=== PATIENT | male | born 1960 | race African-American/Black ===

== ENCOUNTER 2024-06-06 05:43 | Day surgery (SDC) | payer MEDICAID ==
[~2024-06-06] VITALS: Ht 170.2 cm; Wt 88.9 kg
[~2024-06-06 05:43] MED LIST: BUPR1PAT10 TD; CHOL200059 PO; DOCU-405 PO; DULO30CA2 PO; DULO60CA64 PO; DUPI300S SQ; GABA800T97 PO; HYDR12.54 PO; LOSA-415 PO; TIZA4CAP PO
[2024-06-06] MEDS ORDERED: BUPIVACAINE HCL/PF 0.5% (5MG/ML) 10ML ONE (07:06)
[2024-06-06] MEDS ORDERED: SKIN ADHESIVE 0.7 GM EA TOP ONE (07:06)
[2024-06-06] MEDS ORDERED: MINERAL OIL 10 ML VIAL ONE (07:21)
[2024-06-06] MEDS ORDERED: VASOPRESSIN 20 UNIT/ML 1ML ONE (07:41)
[2024-06-06] MEDS ORDERED: ETOMIDATE 2MG/ML 10ML VIAL IV ONE (07:49)
[2024-06-06] MEDS ORDERED: HYDROMORPHONE HCL/PF 1MG/ML INJ ONE ×2 (07:50→08:37)
[2024-06-06] MEDS ORDERED: ROCURONIUM BROMIDE 10MG/ML VIAL 5ML IV ONE (07:57)
[2024-06-06] MEDS ORDERED: FENTANYL CITRATE/PF 50MCG/ML 2ML VIAL ONE (08:01)
[2024-06-06] MEDS ORDERED: CLINDAMYCIN 600MG PREMIX 50 ML IV ONE (08:11)
[2024-06-06] MEDS: LACTATED RINGERS 1,000 ML IV SCH (08:18)
[2024-06-06] MEDS ORDERED: GLYCOPYRROLATE 0.2 MG/ML 2ML VIAL ONE ×2 (08:27→08:53)
[2024-06-06] MEDS ORDERED: NEOSTIGMINE METHYLSULFATE 1MG/ML 10 ML VIAL ONE (08:53)
[2024-06-06] MEDS ORDERED: HYDROMORPHONE HCL/PF 1MG/ML INJ IV PRN (09:00)
[2024-06-06] MEDS ORDERED: HYDRALAZINE 20MG/ML VIAL IV PRN (09:00)
[2024-06-06] MEDS ORDERED: LABETALOL 5MG/ML 4ML INJ IV PRN (09:00)
[2024-06-06] MEDS ORDERED: GLYCOPYRROLATE 0.2 MG/ML 2ML VIAL IV PRN (09:00)
[2024-06-06] MEDS ORDERED: ONDANSETRON HCL 4MG/2ML INJ IV PRN (09:15)
[2024-06-06] MEDS: HYDROMORPHONE HCL/PF 1MG/ML INJ IV PRN ×2 (09:50→10:35)
[2024-06-06 10:35] VITALS: BP 125/79; PULSE 85; RESP 16
== END 2024-06-06 11:55 | disposition home or self-care (01) ==
LOC: OR 05:43
PROVIDERS: ATTEND Surgery
DX: K42.9 Umbilical hernia without obstruction or gangrene (principal); I10 Essential (primary) hypertension; M19.90 Unspecified osteoarthritis, unspecified site; Z79.899 Other long term (current) drug therapy; Z98.890 Other specified postprocedural states; Z79.82 Long term (current) use of aspirin; Z88.8 Allergy status to other drugs, medicaments and biological substances; Z88.0 Allergy status to penicillin; Z88.5 Allergy status to narcotic agent
CPT/HCPCS: 49593; 82962; J3010; J3490 ×6; J1171; J7030; J2710; C1781